=== PATIENT | female | born 1930 | race Caucasian/White ===

== ENCOUNTER 2020-11-30 11:23 | Observation (INO) ==
[2020-11-30 11:58] LABS: Basophils # (auto) 0.02 K/uL (0-0.2); Basophils % (auto) 0.4 %; Eosinophils # (auto) 0.27 K/uL (0-0.5); Eosinophils % (auto) 5.4 %; Hematocrit (blood only) 33.4 % (37-47); Hemoglobin 10.5 g/dL (12.0-16.0); Immature Granulocytes # (auto) 0.01 K/uL (0.00-0.02); Immature Granulocytes % (auto) 0.2 %; Lymphocytes % (auto) 14.1 %; Mean Corpuscular Hemoglobin 27.5 pg (25-34); Mean Corpuscular Hgb Conc 31.4 g/dL (32-36); Mean Corpuscular Volume 87.4 fL (80-100); Mean Platelet Volume 10.2 fL (7.4-10.4); Monocytes % (auto) 12.1 %; Neutrophils # (auto) 3.36 K/uL (1.4-6.5); Neutrophils % (auto) 67.8 %; Platelet Count 171 K/uL (130-400); RDW Coefficient of Variation 15.5 % (11.5-14.5); RDW Standard Deviation 49.8 fL (36.4-46.3); Red Blood Count 3.82 M/uL (4.2-5.4); White Blood Count 4.96 K/uL (4.8-10.8)
[2020-11-30] MEDS ORDERED: SODIUM CHLORIDE 0.9% 1000ML 500 ML IV ONE (12:08)
[2020-11-30 12:12] LABS: Albumin Level 3.7 gm/dl (3.4-5.0); Calcium 9.9 mg/dl (8.5-10.1); Creatinine Clr Calc Pharmacy 20.1 ml/min; Est GFR (African American) 34.3 ml/min; Est GFR (Non-African American) 29.6 ml/min; Potassium 3.9 mmol/L (3.5-5.1)
--- NOTE | 2020-11-30 12:12 | Emergency Department Note ---
History of Present Illness General Chief complaint: GI Assessment Stated complaint: NAUSEA, VOMITING Time Seen by Provider: 11/30/20 11:54 Source: patient and family (Son who is at the bedside) Mode of arrival: EMS Limitations: no limitations History of Present Illness This patient is an 89-year-old female comes in after having an episode where she was pale sweaty and nauseated. She was in usual state of health she ate breakfast and had some blueberry pancakes and coffee. She then went to the bathroom and got very pale and cold and sweaty and nauseated. She threw up twice and had a small amount of reddish in it that the family was concerned could be blood. She feels fine at present she had no chest pain shortness breath or abdominal pain. She said no blood or melena in her stool. No trauma or injury. No history of similar. She has a minimal headache at present. No focal numbness or weakness. She is on aspirin but no other blood thinners. No history of GI bleeds specifically she denies history of peptic ulcers or va rices. Home Medications Medication Instructions Recorded Confirmed Type ascorbate calcium (vitamin C) 500 mg PO [facility] 11/30/20 11/30/20 History [Marge-C] aspirin [Aspir-81] 81 mg PO [facility] 11/30/20 11/30/20 History atenolol [Tenormin] 25 mg PO [facility] 11/30/20 11/30/20 History cyanocobalamin (vitamin B-12) 0 mcg PO QA 11/30/20 11/30/20 History [Vitamin B-12] hydrochlorothiazide 12.5 mg PO [facility] 11/30/20 11/30/20 History lisinopril 40 mg PO [facility] 11/30/20 11/30/20 History pravastatin 20 mg PO HS 11/30/20 11/30/20 History Allergies Allergy/AdvReac Type Severity Reaction Status Date / Time codeine Allergy Intermediate itchy Unverified 11/30/20 12:07 morphine Allergy Intermediate blotches Unverified 11/30/20 12:07 Penicillins Allergy Intermediate Rash Unverified 11/30/20 12:07 ciprofloxacin [From Cipro] AdvReac Intermediate Gastrointestinal Unverified 11/30/20 12:07 Upset Sulfa (Sulfonamide AdvReac Intermediate Gastrointestinal Unverified 11/30/20 12:07 Antibiotics) Upset Past Med/Surg History Social History Smoking Status: Never smoker Feels Safe at Home: Yes Immunizations: Past medical historydiverticulosis. Denies diabetes and cardiac disease. She has had both Covid vaccines x2. She had a hip replacement done earlier this year on the right hip. Social history does not smoke or drink. She is staying with her family but lives independently in [place] Review of Systems A total of 10 systems reviewed and were otherwise negative Physical Exam Vital Signs Vital Signs - 24 hr 11/30/20 11:30 11/30/20 12:30 Pulse Rate 58 L Pulse Rate [Apical] 56 L Respiratory Rate 18 18 Respiratory Effort / Characteristics Non-Labored Non-Labored Respiratory Depth Normal Normal Blood Pressure 182/91 H Blood Pressure [Left Arm] 183/81 H Blood Pressure Mean 121 Blood Pressure Mean [Left Arm] 115 Pulse Oximetry 98 98 Oxygen Delivery Method Room Air Room Air Sepsis Recent Fever Within 48 Hours No Sepsis New/Unexplained Change in Mental Status No Sepsis Action Taken by Nursing No Action Required General: Well developed well nourished not ill-appearing older female who in no acute distress, breathing comfortably on room air. Normal speech HEENT: Normal cephalic atraumatic. Pupils are equal round and reactive to li ght. Sclera are anicteric extraocular movements are intact. Oropharynx is pink with moist mucous membranes. No swelling of the mouth lips or tongue. Neck: Supple with a midline trachea. No meningeal signs or stiffness, no JVD or bruits. No Stridor. Chest: Clear to auscultation bilaterally. No wheezes or rhonchi. No increased work of breathing. Heart: Regular rate and rhythm without murmurs or gallops. Abdomen: Soft nontender, nondistended without rebound guarding or rigidity. Extremities: No cyanosis clubbing or edema. No calf tenderness or assymetry Spine/Back. Non tender to palpation. No CVA tenderness Skin: Good turgor without rashes. Neurologic exam: Cranial nerves two through 12 are intact. Motor and sensation are intact and symmetrical throughout. Finger-nose intact. No pronator drift. Course Administered Medications Discontinued Medications Sodium Chloride (Nss 1000ml) 500 mls @ 999 mls/hr IV .Q31M ONE Stop: 11/30/20 12:38 Last Infusion: 11/30/20 13:26 Dose: 0 mls/hr Documented by: [id number] Admin: 11/30/20 12:17 Dose: 999 mls/hr Documented by: [id number] Medical Decision Making Differential Diagnosis GI bleed, arrhythmia, acute coronary syndrome, vasovagal, electrolyte or metabolic abnormality Medical Records Attestation: I reviewed the patient's medical records. Home Medications Current Medication List: was personally reviewed by me Laboratory Data Attestation: I reviewed the patient's lab results. Result diagrams: 11/30/20 11:30 11/30/20 11:30 Lab Results 11/30/20 11/30/20 11/30/20 Range/Units 11:30 11:30 11:30 WBC 4.96 (4.8-10.8) K/uL RBC 3.82 L (4.2-5.4) M/uL Hgb 10.5 L (12.0-16.0) g/dL Hct 33.4 L (37-47) % MCV 87.4 (80-100) fL MCH 27.5 (25-34) pg MCHC 31.4 L (32-36) g/dL RDW Std Deviation 49.8 H (36.4-46.3) fL RDW Coeff of Jessica 15.5 H (11.5-14.5) % Plt Count 171 (130-400) K/uL MPV 10.2 (7.4-10.4) fL Immature Gran % (Auto) 0.2 % Neut % (Auto) 67.8 % Lymph % (Auto) 14.1 % Mcleod % (Auto) 12.1 % Eos % (Auto) 5.4 % Baso % (Auto) 0.4 % Neut # (Auto) 3.36 (1.4-6.5) K/uL Lymph # (Auto) 0.70 L (1.2-3.4) K/uL Mcleod # (Auto) 0.60 H (0.11-0.59) K/uL Eos # (Auto) 0.27 (0-0.5) K/uL Baso # (Auto) 0.02 (0-0.2) K/uL Immature Gran # (Auto) 0.01 (0.00-0.02) K/uL PT 10.4 (9.0-12.0) Seconds INR 1.0 (0.9-1.1) APTT 22.0 (21.0-31.0) Seconds PTT Ratio 0.8 Sodium 140 (136-145) mmol/L Potassium 3.9 (3.5-5.1) mmol/L Chloride 107 (98-107) mmol/L Carbon Dioxide 26 (21-32) mmol/L Anion Gap 7.0 (3-11) BUN 26 H (7-18) mg/dl Creatinine 1.55 H (0.6-1.2) mg/dl Est Cr Clr Drug Dosing 20.1 ml/min Est GFR ( Amer) 34.3 ml/min Est GFR (Non-Af Amer) 29.6 ml/min BUN/Creatinine Ratio 17.0 (10-20) Glucose 110 H (70-99) mg/dl Calcium 9.9 (8.5-10.1) mg/dl Total Bilirubin 0.4 (0.2-1) mg/dl AST 26 (15-37) U/L ALT 18 (12-78) U/L Alkaline Phosphatase 69 (45-117) U/L Troponin I (0-0.045) ng/ml Total Protein 7.5 (6.4-8.2) gm/dl Albumin 3.7 (3.4-5.0) gm/dl Globulin 3.8 (2.5-4.0) gm/dl Albumin/Globulin Ratio 1.0 (0.9-2) Lipase 210 (73-393) U/L COVID-19 Eval Order SARS-CoV-2 (PCR) (Negative) 11/30/20 11/30/20 11/30/20 Range/Units 11:30 12:18 12:18 WBC (4.8-10.8) K/uL RBC (4.2-5.4) M/uL Hgb (12.0-16.0) g/dL Hct (37-47) % MCV (80-100) fL MCH (25-34) pg MCHC (32-36) g/dL RDW Std Deviation (36.4-46.3) fL RDW Coeff of Jessica (11.5-14.5) % Plt Count (130-400) K/uL MPV (7.4-10.4) fL Immature Gran % (Auto) % Neut % (Auto) % Lymph % (Auto) % Mcleod % (Auto) % Eos % (Auto) % Baso % (Auto) % Neut # (Auto) (1.4-6.5) K/uL Lymph # (Auto) (1.2-3.4) K/uL Mcleod # (Auto) (0.11-0.59) K/uL Eos # (Auto) (0-0.5) K/uL Baso # (Auto) (0-0.2) K/uL Immature Gran # (Auto) (0.00-0.02) K/uL PT (9.0-12.0) Seconds INR (0.9-1.1) APTT (21.0-31.0) Seconds PTT Ratio Sodium (136-145) mmol/L Potassium (3.5-5.1) mmol/L Chloride (98-107) mmol/L Carbon Dioxide (21-32) mmol/L Anion Gap (3-11) BUN (7-18) mg/dl Creatinine (0.6-1.2) mg/dl Est Cr Clr Drug Dosing ml/min Est GFR ( Amer) ml/min Est GFR (Non-Af Amer) ml/min BUN/Creatinine Ratio (10-20) Glucose (70-99) mg/dl Calcium (8.5-10.1) mg/dl Total Bilirubin (0.2-1) mg/dl AST (15-37) U/L ALT (12-78) U/L Alkaline Phosphatase (45-117) U/L Troponin I < 0.015 (0-0.045) ng/ml Total Protein (6.4-8.2) gm/dl Albumin (3.4-5.0) gm/dl Globulin (2.5-4.0) gm/dl Albumin/Globulin Ratio (0.9-2) Lipase (73-393) U/L COVID-19 Eval Order Covid19 at [facility] SARS-CoV-2 (PCR) NEGATIVE (Negative) Imaging Data Attestation: I personally reviewed and interpreted this imaging study as follows: My Impression: Chest x-rayno acute infiltrate, failure, pneumothorax seen Radiologist's Impression: Chest X-Ray 11/30/20 12:06 XR chest 1V portable CLINICAL HISTORY: emesis COMPARISON STUDY: No previous studies for comparison. FINDINGS: The heart is borderline enlarged. There is aortic tortuosity/ectasia. There is no failure. There is no lobar consolidation. There is minor basilar atelectasis.[There is no free intraperitoneal air. IMPRESSION: 1. Minor basilar atelectasis 2. No evidence of failure. No evidence of lobar consolidation. ACT 112: Negative or not required by law. Electronically signed by: Gage Lieberman M.D. 11/30/2020 12:37 PM ECG Data Attestation: I personally reviewed and interpreted this ECG as follows: Indication: + weakness Rate (beats per minute): 55 Rhythm: + sinus bradycardia ECG Intervals/blocks: + Normal QRS, + Normal QT and + Normal VA ECG [place]: + Left axis deviation ECG Findings: + Other (Nonspecific T waves) Comparison ECG Date: no prior available Additional Comments: EKG #2sinus bradycardia at a rate of 55. LVH. Nonspecific T wave abnormality/flattening. No ectopy. No significant change when compared to EKG #1 [facility] Narrative This patient comes in as described above she had episode where she got pale and minimally responsive she had cold sweats and nauseated and threw up with possibly some blood in it. She has been there at present she had no chest pain. IV was established and blood work was obtained. She was placed on a engine monitor and B12. She has no history of GI problems and she is not on any blood thinners with exception of aspirin. She remained stable in the emergency department. Her EKG shows sinus bradycardia without any definite ischemic changes. Troponin is not elevated. Her lab work does reveal anemia at 10.5 and renal insufficiency with a creatinine of 1.55. I have reviewed old labs that the son gave me access to her [place] online account. Her last hemoglobin earlier this year was 9.7 and her creatinine was 1.23 so these are similar ranges. It looks like she has baseline anemia. She has remained stable. I did look at the emesis that the family brought in does look like digested food rather than blood. I did a second EKG and it was unchanged. The first. Although the patient has been asymptomatic while she is here I am concerned she had this episode where she was pale and diaphoretic and minimally responsive. It may have been a vasovagal episode but given her age it certainly could have been arrhythmia. I do think this warrants observation. The patient and her son are in agreement with this. I have consulted Dr. Alva to see the patient in ER for these measures. Continuous cardiac monitoring: Due to the episode of unresponsiveness/near syncope, order was placed in the EMR for continuous cardiac monitoring. Upon my evaluation, she was in sinus bradycardia with a pulse of 56 Impression & Plan Near syncope, Vomiting, Diaphoresis, Weakness, Lab test negative for COVID-19 virus Discharge Plan Visit Data Chief Complaint: GI Assessment Stated Complaint: NAUSEA, VOMITING ED Provider: Alberto Peters Discharge Problem: Near syncope, Vomiting, Diaphoresis, Weakness, Lab test negative for COVID-19 virus Forms Stand Alone Forms: My [facility] Prescriptions Prescriptions: No Action atenolol [Tenormin] 25 mg tablet 25 mg PO QAM RF: 0 cyanocobalamin (vitamin B-12) [Vitamin B-12] 1,000 mcg Tablet 0 mcg PO QAM RF: 0 aspirin [Aspir-81] 81 mg Tablet,Delayed Release (Dr/Ec) 81 mg PO QAM RF: 0 ascorbate calcium (vitamin C) [Marge-C] 500 mg Tablet 500 mg PO QAM RF: 0 pravastatin 20 mg tablet 20 mg PO HS RF: 0 lisinopril 40 mg tablet 40 mg PO QAM RF: 0 hydrochlorothiazide 12.5 mg tablet 12.5 mg PO QAM RF: 0 Discharge Problem: Vomiting Qualifiers: Vomiting type: unspecified Vomiting Intractability: non-intractable Nausea presence: without nausea Qualified Code(s): R11.11 - Vomiting without nausea
[2020-11-30 12:15] LABS: Bilirubin,Total 0.4 mg/dl (0.2-1); Globulin 3.8 gm/dl (2.5-4.0); Total Protein 7.5 gm/dl (6.4-8.2)
[2020-11-30 12:24] LABS: Partial Thromboplastin Ratio 0.8; Prothrombin Time 10.4 Seconds (9.0-12.0)
--- NOTE | 2020-11-30 12:38 | XRay Report ---
XR chest 1V portable CLINICAL HISTORY: emesis COMPARISON STUDY: No previous studies for comparison. FINDINGS: The heart is borderline enlarged. There is aortic tortuosity/ectasia. There is no failure. There is no lobar consolidation. There is minor basilar atelectasis.[There is no free intraperitoneal air. IMPRESSION: 1. Minor basilar atelectasis 2. No evidence of failure. No evidence of lobar consolidation. ACT 112: Negative or not required by law. Electronically signed by: Gage Lieberman M.D. 11/30/2020 12:37 PM
--- NOTE | 2020-11-30 14:15 | History & Physical Report ---
Date of Service November 30, 2020 Assessment & Plan (1) Near syncope: Observe on telemetry overnight for arrhythmia Most likely vagal related to shower and atenolol +/- HCTZ [employer] in a.m. Continue on her usual antihypertensives for now. (2) Vomiting: Unclear cause of this and appears to be back to her baseline. Serial troponins overnight. Ondansetron 4 mg every 6 hourly as needed Monitor overnight (3) Diaphoresis: Trend troponins overnight. (4) Elevated d-dimer: CT angiogram negative for pulmonary embolism Unclear what is driving this but difficult to ignore D-dimer of 13,000. She has chronic anemia with possibility of repeat colonoscopy mentioned in outpatient notes. I recommend she talks with her PCP further regarding possible need to repeat this. (5) Pulmonary nodule: Consider repeat CT in 6 months. Admission and Anticipated Discharge Date Admission Date: November 30, 2020 History of Present Illness Chief Complaint: Short of breath, vomiting, presyncope Primary Care Provider: NO PCP Constance Beckham is an 89 year old female who presents to the ER with a syncopal episode. Her son at bedside provides most of history. The patient is visiting her son from where she lives alone at [place]. This morning after a shower she started having nausea and vomiting. There was some concern of vomiting blood but she did have blueberry pancakes just a short time earlier. She appeared pale, sweaty, less responsive in respiratory distress. Episode occurred around 10:15 AM. No abdominal pain, diarrhea, constipation, melena or bright red blood in stool. She has chronic anemia with baseline hemoglobin 9.7. She had no syncope, palpitations, orthopnea, PND, chest pain. Outpatient records obtained from 1 of code from her son. Creatinine here elevated at 1.55 however her baseline is around about this at 1.23. She notably had her hip replaced in August 2020. She reports stable shortness of breath on exertion following this and she does not feel this is getting better. She feels this may be because she has to work much harder because of her hip replacement and this makes her more short of breath. Is especially notable getting dressed in the morning. In the ER initial troponin negative. EKG with sinus bradycardia and T wave flattening throughout. She was referred to medicine for admission ongoing management of the syncope and weakness. The patient reports feeling mostly back to her baseline at this time. Allergies Allergy/AdvReac Type Severity Reaction Status Date / Time codeine Allergy Intermediate itchy Unverified 11/30/20 12:07 morphine Allergy Intermediate blotches Unverified 11/30/20 12:07 Penicillins Allergy Intermediate Rash Unverified 11/30/20 12:07 ciprofloxacin [From Cipro] AdvReac Intermediate Gastrointestinal Unverified 11/30/20 12:07 Upset Sulfa (Sulfonamide AdvReac Intermediate Gastrointestinal Unverified 11/30/20 12:07 Antibiotics) Upset Home Medications Medication Instructions Recorded Confirmed Type ascorbic acid (vitamin C) 500 mg PO QAM 11/30/20 11/30/20 History aspirin [Aspir-81] 81 mg PO QAM 11/30/20 11/30/20 History atenolol [Tenormin] 25 mg PO QAM 11/30/20 11/30/20 History cyanocobalamin (vitamin B-12) 0 mcg PO QAM 11/30/20 11/30/20 History [Vitamin B-12] hydrochlorothiazide 12.5 mg PO QAM 11/30/20 11/30/20 History lisinopril 40 mg PO QAM 11/30/20 11/30/20 History pravastatin 20 mg PO HS 11/30/20 11/30/20 History Past Med/Surg History Medical History (Updated 11/30/20 @ 20:35 by Jose Alva MD) Chronic anemia Hypertension Lichen sclerosus Lichen simplex chronicus Melanoma Osteoarthritis Osteoporosis Peripheral neuropathy Rectocele Surgical History (Updated 11/30/20 @ 15:15 by Jose Alva MD) H/O dilation and curettage 1973 H/O: hysterectomy 01/29/2004 History of appendectomy 1951 History of hernia repair 02/09/2020 History of hip replacement 08/29/2020 History of tubal ligation 1972 Social History Smoking Status: Never smoker Second Hand Exposure: Yes ( was smoker); Hx Alcohol Use: No Hx Substance Use: No Preferred Language: Irish Communication Ability: Effective 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 Beliefs That Will Affect Care: None Current Living Situation: Family Current Living Situation Comment: Daughter lives with her Other Information That Helps Us Care for You: No Feels Safe at Home: Yes Safety Concerns: Feels Safe At This Time Assistive Devices: Glasses Review of Systems Review of Systems: All systems reviewed & are unremarkable except as noted in HPI & below Physical Exam Constitutional: WD/WN, vitals as above Eyes: PERRL, conjunctivae normal, anicteric sclerae Neck: trachea midline, no thyromegaly Respiratory: normal respiratory effort, lungs clear to auscultation Cardiovascular: RRR, no murmur, no edema Gastrointestinal (Abdomen): normal bowel sounds, soft, nontender, no hepatosplenomegaly Musculoskeletal: no cyanosis or clubbing, extremities motor strength 5/5 Skin: no rashes, warm and dry Neurologic: moves all extremities and awake; no focal motor deficits and not confused Speech / Cognition: normal speech Motor/Sensory: no tremor and no pronator drift Psychiatric: A+Ox3, euthymic affect Results & Data Results & Data ([facility]) Vital Signs (Past 12 Hours) Vital Signs Pulse Pulse Resp BP BP Pulse Ox 11/30/20 12:30 56 L 18 183/81 H 98 11/30/20 11:30 58 L 18 182/91 H 98 Diagnostic Findings XR chest 1V portable IMPRESSION: 1. Minor basilar atelectasis 2. No evidence of failure. No evidence of lobar consolidation. CT ANGIOGRAM OF THE CHEST IMPRESSION: 1. No evidence of acute pulmonary embolism 2. Solid 7.6 mm left lower lobe pulmonary nodule. Six-month follow-up recommended. Medications Administered ER medications given: NSS 500 mL bolus ECG Indication: other (Presyncope) Rate (beats per minute): 55 Rhythm: sinus bradycardia Findings: + other (Nonspecific T wave flattening, poor R wave progression) Comparison ECG Date: no prior available Code Status & VTE Plan Code Status DNR. All treatment outside of a cardiac arrest. VTE Prophylaxis Plan VTE Prophylaxis will be ordered: Yes PG Care Time/CCT Total # of Minutes Spent Total Time Spent with Patient: Total time spent is greater than 50% in coordination of care (as documented) at patient's floor/unit and/or counseling patient: Coding Level of Care Code 61010 OBS Care - Level 2 Diagnoses Near syncope R55 Vomiting R11.11 Nausea presence: without nausea Vomiting Intractability: non-intractable Vomiting type: unspecified Diaphoresis R61 Elevated d-dimer R79.89 Pulmonary nodule R91.1 (1) Vomiting Nausea presence: without nausea Vomiting Intractability: non-intractable Vomiting type: unspecified Qualified Code(s): R11.11 - Vomiting without nausea
[2020-11-30 14:36] LABS: D Dimer 13110 ug/L FEU (0-500)
[2020-11-30] MEDS ORDERED: OPTIRAY 350 500ml IV ONE (15:41)
--- NOTE | 2020-11-30 15:56 | CT Scan Report ---
CT ANGIOGRAM OF THE CHEST CLINICAL HISTORY: Vomiting. Possible acute pulmonary embolism. COMPARISON STUDY: Chest x-ray dated 11/30/2020 TECHNIQUE: Following the IV administration of 113 mL of Optiray, CT angiogram of the thorax was perfo rmed from the thoracic inlet to the lung bases utilizing the pulmonary embolus protocol. Images are r eviewed in the axial, sagittal, and coronal planes. IV contrast was administered without complication . MIP imaging was performed. A dose lowering technique was utilized adhering to the principles of AL KIRTI. CT DOSE: 203.80 mGy.cm FINDINGS: No pathologically enlarged axillary mediastinal or hilar lymph nodes were visualized. 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 There were no pulmonary artery filling defects to indicate acute pulmonary embolism. No pleural effusions are visualized. There are dependent atelectatic changes. There is no lobar consolidation. There is a solid 7.6 mm lef t lower lobe pulmonary nodule IMPRESSION: 1. No evidence of acute pulmonary embolism 2. Solid 7.6 mm left lower lobe pulmonary nodule. Six-month follow-up recommended. Please refer to below summary of Fleischner criteria recommendations for follow-up of incidental CT n odules (Karoline Fleming, Guidelines for management of small pulmonary nodules detected on CT scans: A sta tement from the Fleischner Society, Radiology 237: [phone].) SOLID NODULES Solitary nodule size: <6 mm * low risk patients: no follow-up needed * high risk patients: optional CT at 12 months Solitary nodule size: 6-8 mm * low risk patients: follow-up at 6-12 months, then consider further follow-up at 18-24 months * high risk patients: initial follow-up CT at 6-12 months and then at 18-24 months if no change Solitary nodule size: >8 mm * either low or high risk patients - consider follow-up CT at 3 months, and/or CT-PET, and/or biopsy Multiple nodules size: <6 mm * low risk patients: no routine follow-up * high risk patients: optional CT at 12 months Multiple nodules size: 6-8 mm * low risk patients: follow-up at 3-6 months, then consider further follow-up at 18-24 months * high risk patients: follow-up at 3-6 months, then at 18-24 months if no change Multiple nodules size: >8 mm * low risk patients: follow-up at 3-6 months, then consider further follow-up at 18-24 months * high risk patients: follow-up at 3-6 months, then at 18-24 months if no change Note: newly detected indeterminate nodule in persons 35 years of age or older. * low risk patients: minimal or absent history of smoking and/or other known risk factors * high risk patients: history of smoking or of other known risk factors (e.g. first degree relative with lung cancer, or exposure to asbestos, radon, uranium) * if a nodule up to 8 mm is partly solid or is ground glass further follow-up is required after 24 m onths to exclude possible slow growing adenocarcinoma (RAMBO) SUBSOLID NODULES Solitary pure ground-glass nodule * nodule size <6 mm - no CT follow-up required * nodule size >=6 mm - follow-up CT at 6-12 months, then every 2 years until 5 years Solitary part-solid nodule * nodule size <6 mm - no CT follow-up required * nodule size >=6 mm - follow-up CT at 3-6 months. If unchanged, and solid component remains <6 mm, then annual follow-up for 5 years Multiple subsolid nodules * nodule size <6 mm - follow-up CT at 3-6 months, consider further follow-up at 2 and 4 years if sta ble * nodule size >=6 mm - follow-up CT at 3-6 months, subsequent management based on the most suspiciou s nodule(s) ACT 112: Negative or not required by law. Electronically signed by: Gage Lieberman M.D. 11/30/2020 3:55 PM
[2020-11-30] MEDS ORDERED: ACETAMINOPHEN 325 MG TAB PO PRN (15:59)
[2020-11-30] MEDS ORDERED: ONDANSETRON INJ 2 MG/ML 2 ML VIAL IV PRN (15:59)
--- NOTE | 2020-11-30 16:35 | Electrocardiogram Report ---
Test Reason : Blood Pressure : / mmHG Vent. Rate : 055 BPM Atrial Rate : 055 BPM P-R Int : 200 ms QRS Dur : 072 ms QT Int : 456 ms P-R-T Axes : 023 -29 080 degrees QTc Int : 436 ms Poor data quality, interpretation may be adversely affected Sinus bradycardia Moderate voltage criteria for LVH, may be normal variant Poor R wave progression, consider anterior RI vs. lead placement vs. LVH Nonspecific T wave abnormality Abnormal ECG No previous ECGs available Confirmed by Nimesh Gonzalez ([id number]) on 11/30/2020 4:34:25 PM Referred By: Confirmed By:Rafa Gonzalez
--- NOTE | 2020-11-30 16:39 | Electrocardiogram Report ---
Test Reason : Blood Pressure : / mmHG Vent. Rate : 055 BPM Atrial Rate : 055 BPM P-R Int : 202 ms QRS Dur : 078 ms QT Int : 458 ms P-R-T Axes : 079 -29 117 degrees QTc Int : 438 ms Sinus bradycardia Moderate voltage criteria for LVH, may be normal variant Nonspecific ST abnormality Poor R wave progression, consider anterior GA vs. lead placement vs. LVH Abnormal ECG When compared with ECG of 30-NOV-2020 12:13, (unconfirmed) Inverted T waves have replaced nonspecific T wave abnormality in Lateral leads Confirmed by Nimesh Gonzalez ([id number]) on 11/30/2020 4:39:19 PM Referred By: Confirmed By:Rafa Gonzalez
[2020-11-30] MEDS ORDERED: PRAVASTATIN SOD 20 MG TAB PO SCH (21:00)
[2020-12-01 05:56] LABS: Basophils # (auto) 0.01 K/uL (0-0.2); Basophils % (auto) 0.3 %; Eosinophils # (auto) 0.19 K/uL (0-0.5); Eosinophils % (auto) 4.9 %; Hematocrit (blood only) 31.1 % (37-47); Immature Granulocytes # (auto) 0.01 K/uL (0.00-0.02); Immature Granulocytes % (auto) 0.3 %; Lymphocytes # (auto) 0.86 K/uL (1.2-3.4); Lymphocytes % (auto) 22.3 %; Mean Corpuscular Hemoglobin 27.7 pg (25-34); Mean Corpuscular Hgb Conc 32.2 g/dL (32-36); Mean Corpuscular Volume 86.1 fL (80-100); Mean Platelet Volume 9.7 fL (7.4-10.4); Neutrophils # (auto) 2.28 K/uL (1.4-6.5); Neutrophils % (auto) 59.2 %; Platelet Count 146 K/uL (130-400); RDW Coefficient of Variation 15.8 % (11.5-14.5); RDW Standard Deviation 50.4 fL (36.4-46.3); Red Blood Count 3.61 M/uL (4.2-5.4); White Blood Count 3.85 K/uL (4.8-10.8)
[2020-12-01 06:20] LABS: BUN Creatinine Ratio 19.9 (10-20); Calcium 9.3 mg/dl (8.5-10.1); Est GFR (African American) 34.6 ml/min; Est GFR (Non-African American) 29.8 ml/min; Potassium 3.8 mmol/L (3.5-5.1)
[2020-12-01] MEDS ORDERED: ATENOLOL 25 MG TABLET PO SCH (09:00)
[2020-12-01] MEDS ORDERED: lisinopril 40 MG TAB PO SCH (09:00)
[2020-12-01] MEDS ORDERED: ASCORBIC ACID 500 MG TAB PO SCH (09:00)
[2020-12-01] MEDS ORDERED: ASPIRIN 81 MG ECTAB PO SCH (09:00)
--- NOTE | 2020-12-01 11:58 | Discharge Summary ---
Date of Service December 01, 2020 Admission HPI Per Admitting Provider Constance Beckham is an 89 year old female who presents to the ER with a syncopal episode. Her son at bedside provides most of history. The patient is visiting her son from where she lives alone at [place], [place]. This morning after a shower she started having nausea and vomiting. There was some concern of vomiting blood but she did have blueberry pancakes just a short time earlier. No abdominal pain, diarrhea, constipation, melena or bright red blood in stool. She has chronic anemia with baseline hemoglobin 9.7. She also notes stable shortness of breath on exertion following her hip replacement in August. Short of breath on exertion. Thinks it is because she has to work hard. 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 Fainting episode never happened before Diaphoresis, respiratory distress, less consciousness. Occurred around 10:15am N&V after shower this morning, concern for blood. No abdominal pain. No diarrhea, or constipation, melena, or bright red blood in stool. No presyncope, palpitaion, orthopnea, PND. No chest pain. Since hip replacement more short of breath on exertion. Rodrigo (son) - [phone] Baseline Hgb 9.7 Cr 1.23 Principal Diagnosis Vomiting, Pre-syncope Discharge Exam Constitutional WD/WN, vitals as above comfortable; no acute distress Neck trachea midline, no thyromegaly Respiratory normal respiratory effort, lungs clear to auscultation Cardiovascular Rate/Rhythm: regular rhythm and + bradycardic Heart Sounds: normal S1 and normal S2; no murmur Vessels: normal peripheral pulses; no JVD Extremities: normal capillary refill; no edema Gastrointestinal (Abdomen) normal bowel sounds, soft, nontender, no hepatosplenomegaly Musculoskeletal no cyanosis or clubbing, extremities motor strength 5/5 Skin no rashes, warm and dry Neurologic patellar DTR's 2+ bilat, sensation intact and PERRL, EOMI, accommodation nl, no face palsy, no dysarthria Psychiatric A+Ox3, euthymic affect Lymphatic no cervical or axillary lymphadenopathy Discharge Data Allergies Allergy/AdvReac Type Severity Reaction Status Date / Time codeine Allergy Intermediate itchy Unverified 11/30/20 12:07 morphine Allergy Intermediate blotches Unverified 11/30/20 12:07 Penicillins Allergy Intermediate Rash Unverified 11/30/20 12:07 ciprofloxacin [From Cipro] AdvReac Intermediate Gastrointestinal Unverified 11/30/20 12:07 Upset Sulfa (Sulfonamide AdvReac Intermediate Gastrointestinal Unverified 11/30/20 12:07 Antibiotics) Upset Consultations 11/30/20 13:39 ED Decision to Admit Stat Ordered Studies 11/30/20 14:52 CT angio chest PE protocol Stat Hospital Course (1) Near syncope: no issues on tele, never actually passed out at home, just was diaphoretic and vomited once eating and drinking well here no ischemic changes on EKG, troponin neg x 3 sets, no need for echo as she never actually had syncope and no murmur on exam up and walking in her room, no issues feels normal d/c to home with her son, she can follow up with her PCP back home in [place] if she has further issues (2) Vomiting: no further issues while admitted she feels it was due to taking all her medications with coffee, caused her stomach to feel sour she says he last time she vomited was maybe 60 years ago eating and drinking well here, discharge after she eats lunch (3) Diaphoresis: Trend troponins overnight - negative for three sets (4) Elevated d-dimer: CT angiogram negative for pulmonary embolism Unclear what is driving this but difficult to ignore D-dimer of 13,000. She has chronic anemia with possibility of repeat colonoscopy mentioned in outpatient notes. I recommend she talks with her PCP further regarding possible need to repeat this. (5) Pulmonary nodule: incidental finding on CTA chest while looking for PE Solid 7.6 mm left lower lobe pulmonary nodule. Six-month follow-up recommended. this was written in discharge instructions, her PCP can arrange for CT chest in May 2021 Total Time Total Time Spent Total Time Spent (In Minutes): 30 Discharge Plan Discharge Items Patient Disposition: Home - Self-Care Reason For Visit: PRESYNCOPE Discharge Diagnosis: Vomiting, pre-syncope Condition on Discharge: Good Goals: stay well nourished, well hydrated, well rested follow up with PCP back home if vomiting continues to be an issue Activity: Resume your previous activity Driving/Machine Use: No limitations Weightbearing: Full weightbearing Non-emergency contact: Primary Care Provider Call non-emergency contact if: you have any medication questions Follow-up/Referrals: Christopher Beltran M.D. [Primary Care Provider] - (follow up in 1-2 weeks if vomiting continues) Diet: Heart Healthy Addtl Attending Provider Instructions: Medications: no changes Vomiting, pre-syncope, diaphoresis no obvious cause other than maybe the combination of medications and coffee upset your stomach Hemoglobin is stable, renal function stable, electrolytes normal sinus bradycardia on telemetry monitoring eating well since you have been here, no further episodes safe to discharge home, if you continue to have vomiting would follow up with PCP back home for further work up Incidental finding of solid pulmonary nodule on CT chest when looking for blood clot Solid 7.6 mm left lower lobe pulmonary nodule. Six-month follow-up recommended. your PCP should order you a CT chest in May 2021 Pending Studies at Discharge: No Stand-Alone Forms: My [facility] Rocket Raise, Smoking Cessation Medications and DC Order Prescriptions: Continued atenolol [Tenormin] 25 mg tablet 25 mg PO QAM RF: 0 cyanocobalamin (vitamin B-12) [Vitamin B-12] 1,000 mcg Tablet 0 mcg PO QAM RF: 0 aspirin [Aspir-81] 81 mg Tablet,Delayed Release (Dr/Ec) 81 mg PO QAM RF: 0 pravastatin 20 mg tablet 20 mg PO HS RF: 0 lisinopril 40 mg tablet 40 mg PO QAM RF: 0 hydrochlorothiazide 12.5 mg tablet 12.5 mg PO QAM RF: 0 ascorbic acid (vitamin C) 500 mg Tablet 500 mg PO QAM RF: 0 Discharge Orders: Discharge Order (Routine); Ordered 12/01/20 Ordered By: Jorge Heredia Admission Data Admit Date/Time: 11/30/20 14:36 Attending Provider: Jorge Heredia Admit Provider: Jose Alva Primary Care Provider: Christopher Beltran Other Providers: Jose Alva Coding Level of Care Code 30127 OBS Care - Discharge Diagnoses Near syncope R55 Vomiting R11.11 Nausea presence: without nausea Vomiting Intractability: non-intractable Vomiting type: unspecified Diaphoresis R61 Elevated d-dimer R79.89 Pulmonary nodule R91.1
== END 2020-12-01 13:45 | disposition home or self-care (01) ==
LOC: 2N 11:23 → ED 11:23 → SUATTDRO 14:36 → 2N 15:21
DX: Z79.82 Long term (current) use of aspirin; E78.5 Hyperlipidemia, unspecified; Z96.641 Presence of right artificial hip joint; R55 Syncope and collapse; R79.89 Other specified abnormal findings of blood chemistry; R06.02 Shortness of breath; Z88.1 Allergy status to other antibiotic agents; R91.1 Solitary pulmonary nodule; Z79.899 Other long term (current) drug therapy; Z88.2 Allergy status to sulfonamides; R11.10 Vomiting, unspecified; Z88.0 Allergy status to penicillin; Z88.5 Allergy status to narcotic agent; R61 Generalized hyperhidrosis